=== PATIENT | male | born 1945 | race Hispanic/Latino ===

== ENCOUNTER 2021-05-02 13:46 | Inpatient (IN) | payer OTHER, MEDICARE ==
[~2021-05-02] VITALS: Ht 162.6 cm; Wt 78.0 kg
[2021-05-02 14:35] LABS: BASOPHILS % (AUTO) 0.3 % (0.0-5.0); EOSINOPHILS % (AUTO) 0.3 % (0.0-8.0); HEMATOCRIT 38.4 % (42-54); LYMPHOCYTES % (AUTO) 8.2 % (21.0-51.0); MEAN CORPUSCULAR HEMOGLOBIN 28.3 pg (27.0-33.0); MEAN CORPUSCULAR HGB CONC 33.9 g/dL (32.0-36.0); MEAN CORPUSCULAR VOLUME 83.5 fL (79-99); MONOCYTES % (AUTO) 7.4 % (3.0-13.0); NEUTROPHILS % (AUTO) 82.9 % (40.0-77.0); PLATELET COUNT (AUTO) 376 K/uL (130-400); RED CELL DISTRIBUTION WIDTH 14.2 % (11.0-15.5); WHITE BLOOD COUNT (AUTO) 15.9 K/uL (4.8-10.8)
[2021-05-02 14:51] LABS: CREATININE 0.9 mg/dL (0.5-1.5); POTASSIUM 4.3 mmol/L (3.5-5.1)
[2021-05-02 14:56] LABS: ALBUMIN 2.8 g/dL (3.5-5.0); BILIRUBIN,DIRECT 0.1 mg/dL (0.0-0.3); BILIRUBIN,TOTAL 0.4 mg/dL (0.2-1.0); TOTAL PROTEIN, SERUM 7.9 g/dL (6.0-8.3)
[2021-05-02] MEDS ORDERED: SOLU-MEDROL 125MG VIAL IVP ONE (15:30)
[2021-05-02] MEDS ORDERED: FAMOTIDINE 20MG VIAL IV STA (15:30)
[2021-05-02] MEDS ORDERED: CEFTRIAXONE 1G VIAL 1 GM in 0.9%NACL 100ML 100 ML IV ONE (15:30)
[2021-05-02 15:36] LABS: ERYTHROCYTE SEDIMENTATION RATE 91 MM/HR (0-20)
[2021-05-02 15:56] LABS: CRP QUANTITATIVE 353.4 mg/L (0.00-9.0)
[2021-05-02] MEDS ORDERED: PHARMACY COMMUNICATION**REMDESIVIR ORDER MISC SCH (16:00)
[2021-05-02] MEDS ORDERED: LACTULOSE 20 GM/30 ML UDCUP PO PRN (16:00)
[2021-05-02] MEDS ORDERED: ONDANSETRON 4MG INJ IV PRN (16:00)
[2021-05-02] MEDS ORDERED: ACETAMINOPHEN 325 MG TAB PO PRN ×2 (16:00)
[2021-05-02] MEDS ORDERED: IOHEXOL-350 75 ML VIAL IV ONE (16:22)
[2021-05-02] MEDS: SOLU-MEDROL 40MG VIAL IVP SCH ×2 (16:22→17:22)
[2021-05-02] MEDS: CEFTRIAXONE 1G VIAL IVP SCH ×2 (16:22→17:22)
[2021-05-02] MEDS: ALBUTEROL INHALER 90MCG/INH IH SCH ×2 (16:22→20:57)
[2021-05-02 16:45] LABS: HDL CHOLESTEROL 22 mg/dL (29-71); LDL DIRECT 32 mg/dL (0-99); TRIGLYCERIDES 82 mg/dL (30-200)
[2021-05-02 18:58] LABS: CHOLESTEROL 89 mg/dL (<200)
[2021-05-02] MEDS ORDERED: COMPOUND IV REFRIGERATED 1 EACH IVSOLN MISC PRN (20:30)
[2021-05-02] MEDS: ENOXAPARIN SODIUM 40 MG/0.4 ML SYRINGE SQ SCH (20:56)
[2021-05-02] MEDS ORDERED: ENOXAPARIN SODIUM 80 MG/0.8 ML SQ SCH (21:00)
[2021-05-02] MEDS ORDERED: REMDESIVIR (EUA) 520 200 MG in 0.9% NACL 250ML 250 ML IV SCH (21:00)
[2021-05-03] VITALS (7 sets, daily range): BP systolic 120–163; BP diastolic 56–93
[2021-05-03 01:54] LABS: ABG BASE EXCESS -0.5 mmol/L (-2.0-3.0); ABG HCO3 23.7 mmol/L (21.0-28.0); ABG OXYGEN SATURATION 91.2 % (95.0-99.0); ABG PCO2 38 mmHg (35-48)
[2021-05-03] MEDS: ALBUTEROL INHALER 90MCG/INH IH SCH ×4 (03:22→21:55)
[2021-05-03] MEDS ORDERED: DEXTROSE 50%-WATER 50 ML DISP.SYRIN IV PRN (03:30)
[2021-05-03] MEDS ORDERED: GLUCAGON 1MG KIT 1 MG ML IM PRN (03:30)
[2021-05-03] MEDS: REMDESIVIR LABS MISC SCH (06:00)
[2021-05-03] MEDS: INSULIN HUMULIN R 100 UNIT/ML 3ML SQ SCH ×5 (06:25→21:54)
[2021-05-03 06:26] LABS: BASOPHILS % (AUTO) 0.2 % (0.0-5.0); HEMATOCRIT 36.2 % (42-54); LYMPHOCYTES % (AUTO) 8.7 % (21.0-51.0); MEAN CORPUSCULAR HEMOGLOBIN 28.1 pg (27.0-33.0); MEAN CORPUSCULAR HGB CONC 33.7 g/dL (32.0-36.0); MEAN CORPUSCULAR VOLUME 83.4 fL (79-99); MONOCYTES % (AUTO) 8.2 % (3.0-13.0); NEUTROPHILS % (AUTO) 80.9 % (40.0-77.0); PLATELET COUNT (AUTO) 386 K/uL (130-400); RED BLOOD CELL COUNT(AUTO) 4.34 MIL/uL (4.50-6.20); RED CELL DISTRIBUTION WIDTH 14.3 % (11.0-15.5); WHITE BLOOD COUNT (AUTO) 9.5 K/uL (4.8-10.8)
[2021-05-03 06:58] LABS: ALBUMIN 2.4 g/dL (3.5-5.0); BILIRUBIN,TOTAL 0.3 mg/dL (0.2-1.0); CREATININE 0.8 mg/dL (0.5-1.5); POTASSIUM 3.7 mmol/L (3.5-5.1)
[2021-05-03 07:08] LABS: CRP QUANTITATIVE 230.5 mg/L (0.00-9.0)
[2021-05-03] MEDS: BARICITINIB (EUA) 2 MG TABLET PO SCH (08:39)
[2021-05-03] MEDS: PANTOPRAZOLE 40 MG/VIAL IVP SCH (08:39)
[2021-05-03] MEDS: ENOXAPARIN SODIUM 40 MG/0.4 ML SYRINGE SQ SCH (08:42)
[2021-05-03] MEDS ORDERED: IOHEXOL-350 75 ML VIAL IV ONE (12:05)
[2021-05-03] MEDS: SOLU-MEDROL 40MG VIAL IVP SCH (16:22)
[2021-05-03] MEDS ORDERED: [UNRECOGNIZED DRUG - OTHER] MISC SCH (17:00)
[2021-05-03] MEDS: ENOXAPARIN SODIUM 80 MG/0.8 ML SQ SCH (19:39)
[2021-05-03] MEDS: REMDESIVIR (EUA) 520 100 MG in 0.9% NACL 250ML 250 ML IV SCH (19:40)
[2021-05-03] MEDS: INSULIN GLARGINE 100 UNITS/ML 10 ML VIAL SQ SCH (21:53)
[2021-05-04 03:58] VITALS: BP 133/57
[2021-05-04] MEDS: ALBUTEROL INHALER 90MCG/INH IH SCH ×4 (04:20→21:53)
[2021-05-04] MEDS: SOLU-MEDROL 40MG VIAL IVP SCH ×2 (04:53→16:05)
[2021-05-04 05:30] LABS: BASOPHILS % (AUTO) 0.2 % (0.0-5.0); EOSINOPHILS % (AUTO) 0.1 % (0.0-8.0); HEMATOCRIT 39.3 % (42-54); LYMPHOCYTES % (AUTO) 12.3 % (21.0-51.0); MEAN CORPUSCULAR HEMOGLOBIN 27.7 pg (27.0-33.0); MEAN CORPUSCULAR HGB CONC 32.8 g/dL (32.0-36.0); MEAN CORPUSCULAR VOLUME 84.3 fL (79-99); NEUTROPHILS % (AUTO) 77.4 % (40.0-77.0); PLATELET COUNT (AUTO) 533 K/uL (130-400); RED BLOOD CELL COUNT(AUTO) 4.66 MIL/uL (4.50-6.20); RED CELL DISTRIBUTION WIDTH 14.6 % (11.0-15.5); WHITE BLOOD COUNT (AUTO) 17.4 K/uL (4.8-10.8)
[2021-05-04] MEDS: REMDESIVIR LABS MISC SCH (06:00)
[2021-05-04 06:04] LABS: HEMOGLOBIN A1C 7.7 % (4.0-6.0)
[2021-05-04 06:24] LABS: ALBUMIN 2.7 g/dL (3.5-5.0); BILIRUBIN,TOTAL 0.3 mg/dL (0.2-1.0); CREATININE 0.9 mg/dL (0.5-1.5); MAGNESIUM 2.6 mg/dL (1.80-2.40); PHOSPHORUS 3.2 mg/dL (2.5-4.9); POTASSIUM 3.4 mmol/L (3.5-5.1); TOTAL PROTEIN, SERUM 7.7 g/dL (6.0-8.3)
[2021-05-04] MEDS: INSULIN HUMULIN R 100 UNIT/ML 3ML SQ SCH ×7 (06:38→20:47)
[2021-05-04 07:00] VITALS: BP 135/63
[2021-05-04] MEDS: PANTOPRAZOLE 40 MG/VIAL IVP SCH (09:27)
[2021-05-04] MEDS: BARICITINIB (EUA) 2 MG TABLET PO SCH (09:28)
[2021-05-04] MEDS: ENOXAPARIN SODIUM 80 MG/0.8 ML SQ SCH ×2 (09:28→20:21)
[2021-05-04 11:00] VITALS: BP 123/61
[2021-05-04] MEDS ORDERED: INSULIN HUMULIN R 100 UNIT/ML 3ML SQ SCH (15:00)
[2021-05-04 16:00] VITALS: BP 119/59
[2021-05-04 19:51] VITALS: BP 128/74
[2021-05-04] MEDS: ALBUTEROL INHALER 90MCG/INH IH PRN (20:19)
[2021-05-04] MEDS: REMDESIVIR (EUA) 520 100 MG in 0.9% NACL 250ML 250 ML IV SCH (20:21)
[2021-05-04] MEDS: INSULIN GLARGINE 100 UNITS/ML 10 ML VIAL SQ SCH (20:46)
[2021-05-04] MEDS ORDERED: LIDOCAINE HCL-MPF 1% 2ML VIAL IV PRN (21:30)
[2021-05-04] MEDS ORDERED: POTASSIUM CHLORIDE 10% ELIXIR 20 MEQ/15 ML UDCUP PO PRN (21:30)
[2021-05-04] MEDS ORDERED: POTASSIUM CHLORIDE 20MEQ/100ML 100 ML IV PRN (21:30)
[2021-05-04 23:19] VITALS: BP 149/82
[2021-05-05] MEDS: ALBUTEROL INHALER 90MCG/INH IH SCH ×4 (03:40→21:45)
[2021-05-05] MEDS: SOLU-MEDROL 40MG VIAL IVP SCH ×2 (04:00→17:01)
[2021-05-05 04:03] VITALS: BP 137/69
[2021-05-05 04:41] LABS: BASOPHILS % (AUTO) 0.3 % (0.0-5.0); EOSINOPHILS % (AUTO) 0.3 % (0.0-8.0); HEMATOCRIT 38.2 % (42-54); LYMPHOCYTES % (AUTO) 7.9 % (21.0-51.0); MEAN CORPUSCULAR HEMOGLOBIN 27.7 pg (27.0-33.0); MEAN CORPUSCULAR HGB CONC 32.7 g/dL (32.0-36.0); MEAN CORPUSCULAR VOLUME 84.5 fL (79-99); MONOCYTES % (AUTO) 6.6 % (3.0-13.0); NEUTROPHILS % (AUTO) 83.1 % (40.0-77.0); PLATELET COUNT (AUTO) 457 K/uL (130-400); RED BLOOD CELL COUNT(AUTO) 4.52 MIL/uL (4.50-6.20); RED CELL DISTRIBUTION WIDTH 14.5 % (11.0-15.5); WHITE BLOOD COUNT (AUTO) 17.6 K/uL (4.8-10.8)
[2021-05-05 05:07] LABS: ALBUMIN 2.5 g/dL (3.5-5.0); BILIRUBIN,TOTAL 0.4 mg/dL (0.2-1.0); CREATININE 0.8 mg/dL (0.5-1.5); CRP QUANTITATIVE 74.9 mg/L (0.00-9.0); POTASSIUM 3.2 mmol/L (3.5-5.1); TOTAL PROTEIN, SERUM 6.8 g/dL (6.0-8.3)
[2021-05-05] MEDS: KCL 20 MEQ ERTAB PO PRN ×2 (05:15→06:40)
[2021-05-05] MEDS: REMDESIVIR LABS MISC SCH (05:17)
[2021-05-05] MEDS: INSULIN HUMULIN R 100 UNIT/ML 3ML SQ SCH ×7 (05:50→20:58)
[2021-05-05 07:00] VITALS: BP 115/51
[2021-05-05] MEDS: ENOXAPARIN SODIUM 80 MG/0.8 ML SQ SCH (08:29)
[2021-05-05] MEDS: PANTOPRAZOLE 40 MG/VIAL IVP SCH (08:29)
[2021-05-05] MEDS: BARICITINIB (EUA) 2 MG TABLET PO SCH (08:30)
[2021-05-05 11:00] VITALS: BP 112/51
[2021-05-05 15:22] LABS: BASOPHILS % (AUTO) 0.2 % (0.0-5.0); EOSINOPHILS % (AUTO) 0.1 % (0.0-8.0); HEMATOCRIT 37.6 % (42-54); LYMPHOCYTES % (AUTO) 10.8 % (21.0-51.0); MEAN CORPUSCULAR HEMOGLOBIN 28.3 pg (27.0-33.0); MEAN CORPUSCULAR HGB CONC 33.5 g/dL (32.0-36.0); MEAN CORPUSCULAR VOLUME 84.3 fL (79-99); MONOCYTES % (AUTO) 6.2 % (3.0-13.0); NEUTROPHILS % (AUTO) 80.3 % (40.0-77.0); PLATELET COUNT (AUTO) 458 K/uL (130-400); RED BLOOD CELL COUNT(AUTO) 4.46 MIL/uL (4.50-6.20); RED CELL DISTRIBUTION WIDTH 14.6 % (11.0-15.5); WHITE BLOOD COUNT (AUTO) 11.7 K/uL (4.8-10.8)
[2021-05-05 16:00] VITALS: BP 125/71
[2021-05-05 19:43] VITALS: BP 138/80
[2021-05-05] MEDS: REMDESIVIR (EUA) 520 100 MG in 0.9% NACL 250ML 250 ML IV SCH (20:58)
[2021-05-05] MEDS ORDERED: ENOXAPARIN SODIUM 0.5 MG/KG EACH SQ SCH (21:00)
[2021-05-05] MEDS: ENOXAPARIN SODIUM 40 MG/0.4 ML SYRINGE SQ SCH (21:02)
[2021-05-05] MEDS: INSULIN GLARGINE 100 UNITS/ML 10 ML VIAL SQ SCH (21:03)
[2021-05-05] MEDS ORDERED: LORA10TA7 PO (21:44)
[2021-05-05] MEDS ORDERED: ENAL2.5T16 PO (21:44)
[2021-05-05] MEDS ORDERED: DONE10TA43 PO (21:44)
[2021-05-05] MEDS ORDERED: ATOR40TA71 PO (21:44)
[2021-05-05] MEDS ORDERED: ATEN100T PO (21:44)
[2021-05-05] MEDS ORDERED: FURO40TA5 PO (21:44)
[2021-05-05] MEDS ORDERED: SERT-439 PO (21:44)
[2021-05-05 23:10] VITALS: BP 133/73
[2021-05-06 03:16] VITALS: BP 130/65
[2021-05-06] MEDS: ALBUTEROL INHALER 90MCG/INH IH SCH ×4 (03:46→21:30)
[2021-05-06] MEDS: SOLU-MEDROL 40MG VIAL IVP SCH ×2 (04:05→16:22)
[2021-05-06 04:33] LABS: BASOPHILS % (AUTO) 0.2 % (0.0-5.0); EOSINOPHILS % (AUTO) 0.1 % (0.0-8.0); HEMATOCRIT 37.9 % (42-54); LYMPHOCYTES % (AUTO) 7.4 % (21.0-51.0); MEAN CORPUSCULAR HEMOGLOBIN 27.9 pg (27.0-33.0); MEAN CORPUSCULAR HGB CONC 32.7 g/dL (32.0-36.0); MEAN CORPUSCULAR VOLUME 85.4 fL (79-99); MONOCYTES % (AUTO) 6.8 % (3.0-13.0); NEUTROPHILS % (AUTO) 83.1 % (40.0-77.0); PLATELET COUNT (AUTO) 460 K/uL (130-400); RED BLOOD CELL COUNT(AUTO) 4.44 MIL/uL (4.50-6.20); RED CELL DISTRIBUTION WIDTH 14.7 % (11.0-15.5); WHITE BLOOD COUNT (AUTO) 12.4 K/uL (4.8-10.8)
[2021-05-06 04:58] LABS: ALBUMIN 2.5 g/dL (3.5-5.0); BILIRUBIN,TOTAL 0.4 mg/dL (0.2-1.0); CREATININE 0.8 mg/dL (0.5-1.5); CRP QUANTITATIVE 80.8 mg/L (0.00-9.0); MAGNESIUM 2.4 mg/dL (1.80-2.40); POTASSIUM 4.2 mmol/L (3.5-5.1); TOTAL PROTEIN, SERUM 6.7 g/dL (6.0-8.3)
[2021-05-06] MEDS: REMDESIVIR LABS MISC SCH (06:00)
[2021-05-06] MEDS: INSULIN HUMULIN R 100 UNIT/ML 3ML SQ SCH ×7 (06:23→20:57)
[2021-05-06 08:00] VITALS: BP 136/77
[2021-05-06] MEDS: ENOXAPARIN SODIUM 40 MG/0.4 ML SYRINGE SQ SCH ×2 (09:01→20:51)
[2021-05-06] MEDS: PANTOPRAZOLE 40 MG/VIAL IVP SCH (09:02)
[2021-05-06] MEDS: BARICITINIB (EUA) 2 MG TABLET PO SCH (09:02)
[2021-05-06] MEDS ORDERED: [UNRECOGNIZED DRUG - OTHER] IV SCH (11:00)
[2021-05-06] MEDS ORDERED: TOCILIZUMAB IV SCH (11:00)
[2021-05-06 12:00] VITALS: BP 113/58
[2021-05-06 16:00] VITALS: BP 125/63
[2021-05-06] MEDS: DONEPEZIL HCL 5 MG TAB PO SCH (20:50)
[2021-05-06] MEDS: SERTRALINE HCL 50 MG TABLET PO SCH (20:51)
[2021-05-06] MEDS: ATORVASTATIN 40 MG TABLET PO SCH (20:51)
[2021-05-06] MEDS: REMDESIVIR (EUA) 520 100 MG in 0.9% NACL 250ML 250 ML IV SCH (20:52)
[2021-05-06] MEDS: INSULIN GLARGINE 100 UNITS/ML 10 ML VIAL SQ SCH (20:57)
[2021-05-06 21:05] VITALS: BP 124/72
[2021-05-07 00:06] VITALS: BP 130/76
[2021-05-07] MEDS: ALBUTEROL INHALER 90MCG/INH IH SCH ×2 (03:30→21:08)
[2021-05-07 04:10] VITALS: BP 129/66
[2021-05-07 05:44] LABS: BASOPHILS % (AUTO) 0.3 % (0.0-5.0); EOSINOPHILS % (AUTO) 0.5 % (0.0-8.0); HEMATOCRIT 37.2 % (42-54); MEAN CORPUSCULAR HEMOGLOBIN 27.5 pg (27.0-33.0); MEAN CORPUSCULAR VOLUME 86.1 fL (79-99); MONOCYTES % (AUTO) 7.1 % (3.0-13.0); NEUTROPHILS % (AUTO) 79.6 % (40.0-77.0); PLATELET COUNT (AUTO) 456 K/uL (130-400); RED BLOOD CELL COUNT(AUTO) 4.32 MIL/uL (4.50-6.20); RED CELL DISTRIBUTION WIDTH 14.5 % (11.0-15.5)
[2021-05-07] MEDS: INSULIN HUMULIN R 100 UNIT/ML 3ML SQ SCH ×7 (05:45→21:13)
[2021-05-07] MEDS: SOLU-MEDROL 40MG VIAL IVP SCH ×2 (05:45→16:23)
[2021-05-07 06:12] LABS: ALBUMIN 2.4 g/dL (3.5-5.0); BILIRUBIN,TOTAL 0.5 mg/dL (0.2-1.0); CREATININE 0.8 mg/dL (0.5-1.5); CRP QUANTITATIVE 45.4 mg/L (0.00-9.0); TOTAL PROTEIN, SERUM 6.2 g/dL (6.0-8.3)
[2021-05-07 08:00] VITALS: BP 127/72
[2021-05-07] MEDS: PANTOPRAZOLE 40 MG/VIAL IVP SCH (10:05)
[2021-05-07] MEDS: ENALAPRIL MALEATE 5 MG TAB PO SCH (10:06)
[2021-05-07] MEDS: ENOXAPARIN SODIUM 40 MG/0.4 ML SYRINGE SQ SCH ×2 (10:10→21:11)
[2021-05-07] MEDS: BARICITINIB (EUA) 2 MG TABLET PO SCH (10:11)
[2021-05-07 12:00] VITALS: BP 144/72
[2021-05-07 16:35] VITALS: BP 137/74
[2021-05-07 20:39] VITALS: BP 129/72
[2021-05-07] MEDS: SERTRALINE HCL 50 MG TABLET PO SCH (21:10)
[2021-05-07] MEDS: ATORVASTATIN 40 MG TABLET PO SCH (21:10)
[2021-05-07] MEDS: DONEPEZIL HCL 5 MG TAB PO SCH (21:10)
[2021-05-07] MEDS: INSULIN GLARGINE 100 UNITS/ML 10 ML VIAL SQ SCH (21:14)
[2021-05-08] VITALS (7 sets, daily range): BP systolic 112–148; BP diastolic 52–77
[2021-05-08] MEDS: ALBUTEROL INHALER 90MCG/INH IH SCH ×2 (02:37→21:08)
[2021-05-08] MEDS: SOLU-MEDROL 40MG VIAL IVP SCH ×2 (04:42→20:59)
[2021-05-08 04:55] LABS: BASOPHILS % (AUTO) 0.1 % (0.0-5.0); EOSINOPHILS % (AUTO) 0.4 % (0.0-8.0); HEMATOCRIT 38.1 % (42-54); LYMPHOCYTES % (AUTO) 8.7 % (21.0-51.0); MEAN CORPUSCULAR HEMOGLOBIN 27.5 pg (27.0-33.0); MEAN CORPUSCULAR HGB CONC 33.1 g/dL (32.0-36.0); MONOCYTES % (AUTO) 4.5 % (3.0-13.0); PLATELET COUNT (AUTO) 517 K/uL (130-400); RED BLOOD CELL COUNT(AUTO) 4.59 MIL/uL (4.50-6.20); RED CELL DISTRIBUTION WIDTH 14.3 % (11.0-15.5)
[2021-05-08 05:07] LABS: ALBUMIN 2.7 g/dL (3.5-5.0); BILIRUBIN,TOTAL 0.7 mg/dL (0.2-1.0); CREATININE 0.7 mg/dL (0.5-1.5); CRP QUANTITATIVE 30.3 mg/L (0.00-9.0); POTASSIUM 4.1 mmol/L (3.5-5.1); TOTAL PROTEIN, SERUM 6.7 g/dL (6.0-8.3)
[2021-05-08] MEDS: INSULIN HUMULIN R 100 UNIT/ML 3ML SQ SCH ×3 (06:03→21:07)
[2021-05-08] MEDS: PANTOPRAZOLE 40 MG/VIAL IVP SCH (09:46)
[2021-05-08] MEDS: ENALAPRIL MALEATE 5 MG TAB PO SCH (09:47)
[2021-05-08] MEDS: ENOXAPARIN SODIUM 40 MG/0.4 ML SYRINGE SQ SCH ×2 (09:52→20:58)
[2021-05-08] MEDS: SERTRALINE HCL 50 MG TABLET PO SCH (20:56)
[2021-05-08] MEDS: DONEPEZIL HCL 5 MG TAB PO SCH (20:56)
[2021-05-08] MEDS: ATORVASTATIN 40 MG TABLET PO SCH (20:56)
[2021-05-08] MEDS: INSULIN GLARGINE 100 UNITS/ML 10 ML VIAL SQ SCH (21:02)
[2021-05-09] MEDS: ALBUTEROL INHALER 90MCG/INH IH SCH ×4 (02:33→22:27)
[2021-05-09 03:57] VITALS: BP 124/72
[2021-05-09 04:20] LABS: BASOPHILS % (AUTO) 0.2 % (0.0-5.0); HEMATOCRIT 40.8 % (42-54); MEAN CORPUSCULAR HEMOGLOBIN 27.7 pg (27.0-33.0); MEAN CORPUSCULAR HGB CONC 32.4 g/dL (32.0-36.0); MEAN CORPUSCULAR VOLUME 85.7 fL (79-99); MONOCYTES % (AUTO) 2.9 % (3.0-13.0); NEUTROPHILS % (AUTO) 89.9 % (40.0-77.0); PLATELET COUNT (AUTO) 497 K/uL (130-400); RED BLOOD CELL COUNT(AUTO) 4.76 MIL/uL (4.50-6.20); RED CELL DISTRIBUTION WIDTH 14.5 % (11.0-15.5); WHITE BLOOD COUNT (AUTO) 10.6 K/uL (4.8-10.8)
[2021-05-09 04:35] LABS: ALBUMIN 2.9 g/dL (3.5-5.0); BILIRUBIN,TOTAL 0.6 mg/dL (0.2-1.0); CREATININE 0.9 mg/dL (0.5-1.5); CRP QUANTITATIVE 20.1 mg/L (0.00-9.0); TOTAL PROTEIN, SERUM 6.8 g/dL (6.0-8.3)
[2021-05-09] MEDS: INSULIN HUMULIN R 100 UNIT/ML 3ML SQ SCH ×7 (06:53→20:20)
[2021-05-09 08:00] VITALS: BP 114/70
[2021-05-09] MEDS: PANTOPRAZOLE 40 MG/VIAL IVP SCH (08:03)
[2021-05-09] MEDS: ENOXAPARIN SODIUM 40 MG/0.4 ML SYRINGE SQ SCH ×2 (08:04→20:18)
[2021-05-09] MEDS: SOLU-MEDROL 40MG VIAL IVP SCH ×2 (08:05→20:18)
[2021-05-09] MEDS: ENALAPRIL MALEATE 5 MG TAB PO SCH (09:14)
[2021-05-09 12:00] VITALS: BP 133/74
[2021-05-09] MEDS ORDERED: ASPIRIN 81MG CHEW TAB PO SCH (14:00)
[2021-05-09 16:00] VITALS: BP 116/67
[2021-05-09 19:15] VITALS: BP 113/68
[2021-05-09] MEDS: ATORVASTATIN 40 MG TABLET PO SCH (20:17)
[2021-05-09] MEDS: SERTRALINE HCL 50 MG TABLET PO SCH (20:17)
[2021-05-09] MEDS: DONEPEZIL HCL 5 MG TAB PO SCH (20:18)
[2021-05-09] MEDS: INSULIN GLARGINE 100 UNITS/ML 10 ML VIAL SQ SCH (20:19)
[2021-05-10] VITALS (7 sets, daily range): BP systolic 103–128; BP diastolic 52–78
[2021-05-10] MEDS: ALBUTEROL INHALER 90MCG/INH IH PRN (03:33)
[2021-05-10] MEDS: ALBUTEROL INHALER 90MCG/INH IH SCH ×4 (03:34→20:27)
[2021-05-10 04:51] LABS: BASOPHILS % (AUTO) 0.1 % (0.0-5.0); HEMATOCRIT 41.3 % (42-54); LYMPHOCYTES % (AUTO) 7.1 % (21.0-51.0); MEAN CORPUSCULAR HEMOGLOBIN 27.7 pg (27.0-33.0); MEAN CORPUSCULAR HGB CONC 32.7 g/dL (32.0-36.0); MEAN CORPUSCULAR VOLUME 84.6 fL (79-99); MONOCYTES % (AUTO) 5.2 % (3.0-13.0); NEUTROPHILS % (AUTO) 85.9 % (40.0-77.0); PLATELET COUNT (AUTO) 531 K/uL (130-400); RED BLOOD CELL COUNT(AUTO) 4.88 MIL/uL (4.50-6.20); RED CELL DISTRIBUTION WIDTH 14.3 % (11.0-15.5); WHITE BLOOD COUNT (AUTO) 11.5 K/uL (4.8-10.8)
[2021-05-10 05:36] LABS: BILIRUBIN,TOTAL 0.8 mg/dL (0.2-1.0); CREATININE 0.8 mg/dL (0.5-1.5); POTASSIUM 4.1 mmol/L (3.5-5.1); TOTAL PROTEIN, SERUM 6.9 g/dL (6.0-8.3)
[2021-05-10] MEDS: INSULIN HUMULIN R 100 UNIT/ML 3ML SQ SCH ×7 (06:27→20:31)
[2021-05-10] MEDS: ASPIRIN 81MG CHEW TAB PO SCH (08:27)
[2021-05-10] MEDS: PANTOPRAZOLE 40 MG/VIAL IVP SCH (08:28)
[2021-05-10] MEDS: SOLU-MEDROL 40MG VIAL IVP SCH (08:28)
[2021-05-10] MEDS: ENOXAPARIN SODIUM 40 MG/0.4 ML SYRINGE SQ SCH ×2 (08:28→20:27)
[2021-05-10] MEDS: ENALAPRIL MALEATE 5 MG TAB PO SCH (08:38)
[2021-05-10] MEDS: PREDNISONE 20 MG TABLET PO SCH (12:38)
[2021-05-10] MEDS: ATORVASTATIN 40 MG TABLET PO SCH (20:27)
[2021-05-10] MEDS: DONEPEZIL HCL 5 MG TAB PO SCH (20:27)
[2021-05-10] MEDS: SERTRALINE HCL 50 MG TABLET PO SCH (20:27)
[2021-05-10] MEDS: INSULIN GLARGINE 100 UNITS/ML 10 ML VIAL SQ SCH (20:29)
[2021-05-11] MEDS: ALBUTEROL INHALER 90MCG/INH IH SCH ×2 (02:37→10:53)
[2021-05-11 03:39] VITALS: BP 119/72
[2021-05-11 04:44] LABS: BASOPHILS % (AUTO) 0.2 % (0.0-5.0); EOSINOPHILS % (AUTO) 0.2 % (0.0-8.0); HEMATOCRIT 37.9 % (42-54); LYMPHOCYTES % (AUTO) 12.6 % (21.0-51.0); MEAN CORPUSCULAR HEMOGLOBIN 27.8 pg (27.0-33.0); MEAN CORPUSCULAR VOLUME 84.4 fL (79-99); NEUTROPHILS % (AUTO) 76.7 % (40.0-77.0); PLATELET COUNT (AUTO) 437 K/uL (130-400); RED BLOOD CELL COUNT(AUTO) 4.49 MIL/uL (4.50-6.20); RED CELL DISTRIBUTION WIDTH 14.1 % (11.0-15.5); WHITE BLOOD COUNT (AUTO) 11.1 K/uL (4.8-10.8)
[2021-05-11 05:03] LABS: ALBUMIN 2.7 g/dL (3.5-5.0); BILIRUBIN,TOTAL 0.6 mg/dL (0.2-1.0); CREATININE 0.8 mg/dL (0.5-1.5); CRP QUANTITATIVE 7.3 mg/L (0.00-9.0); POTASSIUM 4.1 mmol/L (3.5-5.1); TOTAL PROTEIN, SERUM 6.1 g/dL (6.0-8.3)
[2021-05-11] MEDS: INSULIN HUMULIN R 100 UNIT/ML 3ML SQ SCH ×2 (05:44→14:11)
[2021-05-11 08:00] VITALS: BP_SYST 111; BP_SYST 126; BP_DIAS 62
[2021-05-11] MEDS ORDERED: INSULIN HUMULIN R 100 UNIT/ML 3ML SQ SCH ×3 (08:00→17:00)
[2021-05-11] MEDS: PANTOPRAZOLE 40 MG/VIAL IVP SCH (10:50)
[2021-05-11] MEDS: PREDNISONE 20 MG TABLET PO SCH (10:51)
[2021-05-11] MEDS: ASPIRIN 81MG CHEW TAB PO SCH (10:51)
[2021-05-11] MEDS: ENALAPRIL MALEATE 5 MG TAB PO SCH (10:52)
[2021-05-11] MEDS: ENOXAPARIN SODIUM 40 MG/0.4 ML SYRINGE SQ SCH (10:52)
[2021-05-11 12:00] VITALS: BP 111/62
[2021-05-11] MEDS ORDERED: APIX2.5T PO (14:51)
[2021-05-11] MEDS ORDERED: PANT40TA55 PO (14:51)
[2021-05-11] MEDS ORDERED: METF-444 PO (14:51)
== END 2021-05-11 16:45 | disposition home or self-care (01) | DRG 177 ==
LOC: EDH 13:46 → EDHIP 15:56 → 2AH 05-03 00:26
PROVIDERS: ADMIT Internal Medicine; ATTEND Internal Medicine
PROC: XW033E5 Introduction of Remdesivir Anti-infective into Peripheral Vein, Percutaneous Approach, New Technology Group 5 (ICD-10-PCS; principal; 2021-05-02)
PROC: 5A0935A Assistance with Respiratory Ventilation, Less than 24 Consecutive Hours, High Flow/Velocity Cannula (ICD-10-PCS; 2021-05-02)
PROC: XW0DXM6 Introduction of Baricitinib into Mouth and Pharynx, External Approach, New Technology Group 6 (ICD-10-PCS; 2021-05-03)
PROC: 5A0935A Assistance with Respiratory Ventilation, Less than 24 Consecutive Hours, High Flow/Velocity Cannula (ICD-10-PCS; 2021-05-03)
PROC: 5A0935A Assistance with Respiratory Ventilation, Less than 24 Consecutive Hours, High Flow/Velocity Cannula (ICD-10-PCS; 2021-05-04)
PROC: 5A0935A Assistance with Respiratory Ventilation, Less than 24 Consecutive Hours, High Flow/Velocity Cannula (ICD-10-PCS; 2021-05-05)
PROC: XW033H5 Introduction of Tocilizumab into Peripheral Vein, Percutaneous Approach, New Technology Group 5 (ICD-10-PCS; 2021-05-06)
PROC: 5A0935A Assistance with Respiratory Ventilation, Less than 24 Consecutive Hours, High Flow/Velocity Cannula (ICD-10-PCS; 2021-05-06)
PROC: 5A0935A Assistance with Respiratory Ventilation, Less than 24 Consecutive Hours, High Flow/Velocity Cannula (ICD-10-PCS; 2021-05-07)
PROC: 5A0935A Assistance with Respiratory Ventilation, Less than 24 Consecutive Hours, High Flow/Velocity Cannula (ICD-10-PCS; 2021-05-08)
PROC: 5A0935A Assistance with Respiratory Ventilation, Less than 24 Consecutive Hours, High Flow/Velocity Cannula (ICD-10-PCS; 2021-05-09)
PROC: 5A0935A Assistance with Respiratory Ventilation, Less than 24 Consecutive Hours, High Flow/Velocity Cannula (ICD-10-PCS; 2021-05-10)
DX: U07.1 COVID-19 (principal); J12.82 Pneumonia due to coronavirus disease 2019; J80 Acute respiratory distress syndrome; D68.69 Other thrombophilia; E11.65 Type 2 diabetes mellitus with hyperglycemia; I25.10 Atherosclerotic heart disease of native coronary artery without angina pectoris; M19.90 Unspecified osteoarthritis, unspecified site; I10 Essential (primary) hypertension; E78.5 Hyperlipidemia, unspecified; E78.00 Pure hypercholesterolemia, unspecified; Z79.4 Long term (current) use of insulin; Z79.84 Long term (current) use of oral hypoglycemic drugs; Z95.1 Presence of aortocoronary bypass graft
CPT/HCPCS: 36415; 36600; 71045; 71275; 73030; 80053; 80061; 80076; 82435; 82550; 82728; 82803; 82947; 82948; 83036; 83605; 83615; 83735; 84100; 84132; 84145; 84295; 84484; 85018; 85025; 85378; 85651; 86140; 87040; 87635; 93005; 93970; 93971; 94760; C9113; C9803; G0378; J0696; J1650; J1815; J2920; J2930; J3490; J7050; Q9967